=== PATIENT | female | born 1950 | race Caucasian/White ===

== ENCOUNTER → 2021-01-24 09:41 | Outpatient (CLI) | payer MEDICARE, BC, SELFPAY ==
--- NOTE | ~2021-01-24 | XR_ITS ---
XR lumbar spine 6V w bending DATE: 01/24/2021 11:50 INDICATION: Low back pain. Lumbago. TECHNIQUE: Standing AP, lateral, flexion and extension lateral views; bilateral oblique and coned lat eral lumbosacral views COMPARISON: None FINDINGS: Diffuse osteopenia. Normal alignment of the lumbar vertebrae. No fracture or bone destruction or spondylolisthesis. There is moderate to moderately severe degenerative disc disease of the lumbar and lumbosacral inters paces. There is prominent degenerative change at the apophyseal joints at the mid and particularly lo wer lumbar and lumbosacral area. No spondylolysis. No instability on flexion or extension. Degenerative spurring of the lower thoracic spine. The sacroiliac joints appear normal. IMPRESSION: Osteopenia Moderate to moderately severe degenerative disc disease Reviewed, dictated and finalized at location A.
--- NOTE | ~2021-01-24 | XR_ITS ---
XR sacroiliac joints min 3V 01/24/2021 11:50 Indication: Sacroiliac joint pain Procedure: 3 views of the sacroiliac joints Comparison: 12/14/2020. Findings: There is mild symmetric degenerative change of the sacroiliac joints with sclerosis along t he iliac margins. No evidence for ankylosis or erosive change. Sacral foramen are symmetric. There is lower lumbar spondylosis partially visualized. 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 Impression: 1: Mild bilateral symmetric degenerative changes of the sacroiliac joints. Reviewed, dictated and finalized at location A. Impression: 1: Mild bilateral symmetric degenerative changes of the sacroiliac joints.
== END ==
PROVIDERS: PCP Family Medicine; Visit Provider Nurse Practitioner Adult Health
DX: M54.5 Low back pain (principal); M53.3 Sacrococcygeal disorders, not elsewhere classified; M85.88 Other specified disorders of bone density and structure, other site
CPT/HCPCS: 72114; 72202

== ENCOUNTER 2024-01-21 08:14 | Outpatient (CLI) | payer MEDICARE, BC, SELFPAY ==
--- NOTE | ~2024-01-21 | CT_ITS ---
EXAMINATION: CT knee LT wo con DATE: 01/21/2024 08:37 INDICATION: Left knee pain TECHNIQUE: High resolution computed tomography (CT) of the left knee was performed without intravenou s contrast. Additional sagittal and coronal reconstructions were performed. Automated exposure contro l and iterative reconstruction technique were employed. The dose-length product was 202.02 mGy-cm. COMPARISON: Radiographs dated 03/27/21 FINDINGS: Diffuse osteopenia. No fracture. Noncemented left total knee arthroplasty without patellar resurfacin g which appears well seated with no abnormal lucency surrounding the femoral or tibial components. An teroposterior screws of the tibial component extend beyond the cortical margins. The posterolateral s crew crosses the proximal tibiofibular articulation with small amount of lucency and surrounding scle rosis where the distal tip projects into the proximal head of the fibula. There is dense metallic str eak artifact associated with the components particularly at the femoral condyles which obscures some of the immediately adjacent bone and soft tissues. The patella does appear to maltrack relative to th e femoral component with the lateral facet extending across the trochlear groove of the femoral compo nent of the arthroplasty with the patellar apical ridge positioned over the medial rim of the cephala d aspect of the femoral component. No evident joint effusion. Loose osteochondral body posterior to t he proximal tibia and medial to the proximal fibula likely within the popliteal recess of the joint s pace. IMPRESSION: 1. Left total knee arthroplasty without patellar resurfacing with no acute osseous or mild to . 2. Suggestion of possible patellar maltracking evaluation of which is limited by metallic streak gloria fact. Consider knee radiographs including sunrise views for further evaluation. 3. The posterolateral screw affixing the tibial component extends across the proximal tibiofibular ar ticulation with lucency surrounding the tip of the screw at the head of the proximal fibula suggestin g residual motion at this location. Reviewed, dictated and finalized at location B. IMPRESSION: 1. Left total knee arthroplasty without patellar resurfacing with no acute osse ous or mild to . 2. Suggestion of possible patellar maltracking evaluation of which is limited b y metallic streak artifact. Consider knee radiographs including sunrise views f or further evaluation. 3. The posterolateral screw affixing the tibial component extends across the pr oximal tibiofibular articulation with lucency surrounding the tip of the screw at the head of the proximal fibula suggesting residual motion at this location.
== END 2024-01-21 08:15 ==
LOC: MICIMG 08:15
PROVIDERS: PCP Nurse Practitioner Family; Visit Provider Nurse Practitioner Family
DX: M25.562 Pain in left knee (principal); Z96.652 Presence of left artificial knee joint
CPT/HCPCS: 73700